=== PATIENT | female | born 1980 | race Caucasian/White ===

== ENCOUNTER 2017-10-18 10:28 | Emergency (ER) | payer BC, OTHER ==
[~2017-10-18] VITALS: Ht 167.6 cm; Wt 77.7 kg
[~2017-10-18 10:28] MED LIST: PRENTAB26 PO
[2017-10-18 10:39] VITALS: TEMP 36.4; Ht 167.6 cm; Wt 77.7 kg
[2017-10-18] MEDS ORDERED: OXYCODONE HCL IR 5 MG TAB (IMMEDIATE RELEASE) PO STA (10:48)
--- NOTE | 2017-10-18 11:10 | DIAGNOSTIC IMAGING REPORT ---
LEFT HAND 3 VIEWS CLINICAL HISTORY: Left hand injury. FINDINGS: 3 views of the left hand are obtained. No prior studies are available for comparison at the time of dictation. The skeletal structures are well mineralized. No fracture is seen. The joint spaces of the hand are well-maintained. The overlying soft tissues are normal in appearance. IMPRESSION: Unremarkable radiographic assessment of the left hand. Electronically signed by: Shawn Casper M.D. 10/18/2017 11:09 AM Dictated Date/Time: 10/18/2017 11:08 AM
[2017-10-18] MEDS ORDERED: OXYC1TAB3 PO (11:34)
--- NOTE | 2017-10-18 11:35 | EMERGENCY ROOM VISIT NOTE ---
History First contact with patient: 10:41 Chief Complaint: HAND PAIN/INJURY Stated Complaint: BROKEN HAND History of Present Illness The patient is a 36 year old female who presents to the Emergency Room with complaints of left hand pain. The patient states that 30 minutes prior to arrival, she had her left hand pinned in a horse stall while trying to let the horse out. She rates her discomfort an 8/10. The pain is worse when she is moving her hand. She denies numbness or weakness. Pain is located over the outside of the hand. She denies pain of the wrist or any other injuries. She has not taken any medication for pain. Review of Systems A complete 6 point review of systems was reviewed with the patient with pertinent positives and negatives as per history of present illness. All else were negative. Past Medical/Surgical History Medical Problems: (1) Broken ribs (2) No Known Active Medical Problems Family History Patient reports no known family medical history. Social History Smoking Status: Never Smoker Marital Status: Occupation Status: employed Current/Historical Medications Scheduled PRN Oxycodone Ir (Roxicodone Ir), 1-2 TAB PO Q4H PRN for Pain Physical Exam Vital Signs Date Time Temp Pulse Resp B/P (MAP) Pulse Ox O2 Delivery O2 Flow Rate FiO2 10/18/17 11:57 78 18 131/77 98 10/18/17 10:39 36.4 92 18 143/74 99 Room Air Physical Exam VITALS: Vitals are noted on the nurse's note and reviewed by myself. Vital signs stable. GENERAL: This is a 36-year-old female, tearful, uncomfortable appearing, well- developed well-nourished. SKIN: No abrasions or lacerations MUSCULOSKELETAL: No obvious deformity of the left hand. There is mild swelling and tenderness to palpation over the area of the left fourth and fifth metacarpals. Full range of motion of the fingers. Capillary refill within 2 seconds. NEURO: Patient was alert and oriented to person place and time. Medical Decision & Procedures ER Provider Diagnostic Interpretation: LEFT HAND 3 VIEWS CLINICAL HISTORY: Left hand injury. FINDINGS: 3 views of the left hand are obtained. No prior studies are available for comparison at the time of dictation. The skeletal structures are well mineralized. No fracture is seen. The joint spaces of the hand are well-maintained. The overlying soft tissues are normal in appearance. IMPRESSION: Unremarkable radiographic assessment of the left hand. Medications Administered Medications (Trade) Dose Ordered Sig/Cydney Route Start Time Stop Time Status Last Admin Dose Admin Oxycodone HCl (Roxicodone Immediate Rel Tab) 5 mg NOW STAT PO 10/18/17 10:48 10/18/17 10:49 DC 10/18/17 11:00 5 MG Medical Decision Differential diagnosis includes fracture, contusion, sprain, dislocation, among others. The patient was evaluated as above. X-ray of the left hand was obtained and read by radiology with no acute fractures. The patient was treated with 5 mg OxyIR for pain. She reported some improvement with this. She was given an ice pack. An Phi wrap was applied to the hand for compression. She was given a short course of pain medication and conservative measures were discussed. She will follow-up with her PCP as needed. She verbalized understanding of my assessment and treatment plan and was discharged home in good condition. Medication Reconcilliation Current Medication List: was personally reviewed by me Blood Pressure Screening Patient's blood pressure: Normal blood pressure Impression Primary Impression: Contusion of hand Departure Information Dispostion Home / Self-Care Condition GOOD Prescriptions Oxycodone Ir (Roxicodone Ir) 5 Mg Tab 1-2 TAB PO Q4H Y for Pain, #10 TAB For Initial Treatment Prov: Yasmeen Francis ., SHOSHANA 10/18/17 Referrals No Doctor, Assigned (PCP) Patient Instructions My [facility] Additional Instructions You have been treated in the Emergency Department for a hand injury. You have received pain medicine in the emergency department which impairs your ability to operate a vehicle. It is illegal for you to drive after receiving these medicines. You have been prescribed Oxy IR to be used for pain control. This is a narcotic medication. You cannot drive or consume alcohol while on this medicine. This medicine should only be used for pain that cannot be controlled with over-the- counter pain medicines. For pain control, you can use the following [id number] medicines (if >12 yo): - Regular strength (325mg/tab) Tylenol (acetaminophen) 2 tabs every 4-6 hours as needed. Do not exceed 12 tablets in a 24 hour period. Avoid taking more than 4 grams (4000 mg) of Tylenol per day. This includes any other sources of acetaminophen you may take on a regular basis. - Regular strength (200 mg/tab) Advil (ibuprofen) 1-2 tabs every 4-6 hours as needed. Do not exceed a dose of 3200 mg per day. If this is a recent injury (<24 hrs), ice can be applied to the area of pain for the first 3 days to help decrease pain and inflammation. Keep the Phi wrap in place to help reduce swelling. Follow-up with your primary care provider or orthopedics if your swelling/pain does not improve over the next several days. Return to the Emergency Department if your current symptoms worsen despite treatment course outlined above, or if you develop any of the following symptoms : intractable pain despite aforementioned treatment course or new onset of numbness or tingling of the fingers. Problem Qualifiers Primary Impression: Contusion of hand Encounter type: initial encounter Laterality: left Qualified Codes: S60.222A - Contusion of left hand, initial encounter
[2017-10-18 11:57] VITALS: BP 131/77; PULSE 78; O2SAT 98
== END 2017-10-18 12:00 | disposition home or self-care (01) ==
LOC: C.EDB 10:29 → C.EDD 12:00
DX: S60.222A Contusion of left hand, initial encounter (principal); W23.0XXA Caught, crushed, jammed, or pinched between moving objects, initial encounter; Y92.71 Barn as the place of occurrence of the external cause

== ENCOUNTER 2017-10-28 06:47 | Emergency (ER) | payer OTHER ==
[~2017-10-28] VITALS: Ht 167.6 cm; Wt 75.8 kg
[~2017-10-28 06:47] MED LIST changes: +OXYC1TAB3 PO; -PRENTAB26 PO
[2017-10-28 06:51] VITALS: BP 128/79; PULSE 75; TEMP 36.8; O2SAT 100; Ht 167.6 cm; Wt 75.8 kg
[2017-10-28] MEDS ORDERED: OXYC1TAB3 PO (07:00)
[2017-10-28] MEDS ORDERED: AMOX875T PO (07:22)
[2017-10-28] MEDS ORDERED: AMOXICILLIN/CLAVULANATE TAB 875 MG TAB PO ONE (07:30)
--- NOTE | 2017-10-28 14:16 | EMERGENCY ROOM VISIT NOTE ---
History Report prepared by Kiah: Lon Alegria Under the Supervision of: Dr. Jono Rubio D.O. First contact with patient: 06:54 Chief Complaint: EAR PAIN Stated Complaint: SEVERE EAR ACHE History of Present Illness The patient is a 37 year old female who presents to the Emergency Room with complaints of worsening right ear pain beginning three hours ago. She woke up with her symptoms. Her pain has travelled into her right jaw. The patient rates her pain as an 8/10 in severity. Her pain is not worsened with opening and closing her mouth. She has taken left over oxycodone for her pain, but nothing has improved her symptoms. Pt denies headache, fevers, sore throat, cough, runny nose, chest pain, shortness of breath, nausea, vomiting, diarrhea, pain with urination, and melena. She denies recent swimming. Source of History: patient Onset: Three hours ago Position: ear (right) Symptom Intensity: 8/10 Timing: worsening Modifying Factors (Relieving): other (none) Associated Symptoms: No fevers, No headache, No sorethroat, No cough, No chest pain, No SOB, No nausea, No vomiting, No melena, No diarrhea, No urinary symptoms Note: Negative: runny nose. Review of Systems See HPI for pertinent positives & negatives. A total of 10 systems reviewed and were otherwise negative. Past Medical & Surgical Medical Problems: (1) Broken ribs (2) No Known Active Medical Problems Family History Patient reports no known family medical history. Social History Smoking Status: Never Smoker Marital Status: Occupation Status: employed Current/Historical Medications Scheduled Amoxicillin & Pot Clavulanate (Augmentin 875-125 mg), 875 MG PO BID Scheduled PRN Oxycodone Ir (Roxicodone Ir), 5-10 MG PO Q4 PRN for Pain Allergies Coded Allergies: No Known Allergies (Verified , 10/28/17) Physical Exam Vital Signs Date Time Temp Pulse Resp B/P (MAP) Pulse Ox O2 Delivery O2 Flow Rate FiO2 10/28/17 06:51 36.8 75 18 128/79 100 Room Air Physical Exam GENERAL: Sitting up in bed, alert, well appearing, well nourished, no distress, non-toxic EYE EXAM: normal conjunctiva. EARS: right ear is erythematous with a small amount of fluid posterior to TM. Left TM clear. OROPHARYNX: no exudate, no erythema, lips, buccal mucosa, and tongue normal and mucous membranes are moist. No submandibular swelling. NECK: supple, no nuchal rigidity, no adenopathy, non-tender LUNGS: Clear to auscultation. Normal chest wall mechanics HEART: no murmurs, S1 normal and S2 normal ABDOMEN: abdomen soft, non-tender, normo-active bowel sounds, no masses, no rebound or guarding. UPPER EXTREMITIES: upper extremities are grossly normal. LOWER EXTREMITIES: No pitting edema. NEURO EXAM: Normal sensorium. Medical Decision & Procedures Medications Administered Medications (Trade) Dose Ordered Sig/Cydney Route Start Time Stop Time Status Last Admin Dose Admin Amoxicillin/ Clavulanate Potassium (Augmentin Tab) 875 mg ONE ONCE PO 10/28/17 07:30 10/28/17 07:31 DC 10/28/17 07:29 875 MG ED Course ED COURSE: Vital signs were reviewed and appeared normal. The patients medical record was reviewed The above diagnostic studies were performed and reviewed. ED treatments and interventions as stated above. 0706: The patient was evaluated in room A3. A complete history and physical examination was performed. 0730: Ordered Augmentin Tab 875 mg PO. 0725: Upon reevaluation, the patient is resting comfortably. I discussed my findings with the patient and she understands and agrees with the treatment plan. Based on the patients age, coexisting illnesses, exam and lab findings the decision to treat as an outpatient was made. The patient remained stable while under my care. The patient appeared well at the time of discharge. Medical Decision Patient is a 37-year-old female who presents to ER for right ear pain. She notes this is been getting significantly worse since this morning. On exam she does have mild erythema of the TM a small amount of fluid posteriorly. She was given a dose of antibiotics here and discharged follow-up with PCP as an outpatient. Discussed with Pt concerning signs and symptoms to watch out for. Pt was instructed to follow up with their PCP and discussed with the patient their option to return to the ED at anytime for persistent or worsening symptoms. The appropriate anticipatory guidance and out-patient management, including indications for return to the emergency department, were explained at length to the patient and understood. Medication Reconcilliation Current Medication List: was personally reviewed by me Blood Pressure Screening Patient's blood pressure: Normal blood pressure Blood pressure disposition: Did not require urgent referral Impression Primary Impression: Otitis media Scribe Attestation The scribe's documentation has been prepared under my direction and personally reviewed by me in its entirety. I confirm that the note above accurately reflects all work, treatment, procedures, and medical decision making performed by me. Departure Information Dispostion Home / Self-Care Prescriptions Amoxicillin & Pot Clavulanate (Augmentin 875-125 mg) 1 Tab Tab 875 MG PO BID for 7 Days, TAB Prov: Jono Rubio, DO 10/28/17 Referrals No Doctor, Assigned (PCP) Forms HOME CARE DOCUMENTATION FORM, IMPORTANT VISIT INFORMATION, WORK / SCHOOL INSTRUCTIONS Patient Instructions ED Otitis Media Serous Adult, My [facility] Additional Instructions Please follow up with your primary care doctor with in the next 24 hours. Any worsening of your symptoms, please return to the ED immediately. This includes any fevers greater than 100.4, worsening pain, chest pain, shortness breath, persistent nausea, vomiting, unable to eat or drink, or any other concerning signs or symptoms from your standpoint. Please take Tylenol or Motrin as needed for pain. Please take antibiotics as prescribed. Problem Qualifiers Primary Impression: Otitis media Otitis media type: unspecified Chronicity: acute Qualified Codes: H66.90 - Otitis media, unspecified, unspecified ear
== END 2017-10-28 07:25 | disposition home or self-care (01) ==
LOC: C.EDB 06:48 → C.EDA 07:25
DX: H66.91 Otitis media, unspecified, right ear (principal)